=== PATIENT | female | born 2000 | race American Indian/Alaskan Native ===

== ENCOUNTER 2022-01-03 12:01 | Emergency (ER) | payer MEDICAID ==
[2022-01-03] MEDS ORDERED: ONDANSETRON 4 MG/2 ML INJ IV ONE (13:06)
[2022-01-03] MEDS ORDERED: SODIUM CHLORIDE 0.9% 1000 ML 1,000 ML IV ONE (13:06)
[2022-01-03] MEDS ORDERED: MORPHINE 4 MG/1 ML INJ IV ONE (13:06)
[2022-01-03 14:37] LABS: Alanine Aminotransferase 10 units/L (7-56); Albumin 4.1 g/dL (3.9-5); Blood Urea Nitrogen 5 mg/dL (7-17); Calcium 9.1 mg/dL (8.4-10.2); Hemolysis Index 24
[2022-01-03 14:41] LABS: BUN/Creatinine Ratio 8
--- NOTE | 2022-01-03 15:06 | Ultrasound Report ---
ULTRASOUND OBSTETRIC Indication: preg, abdominal pain Findings: There is a single, living intrauterine . Gestational sac and yolk sac appear unremarkable. [place]-rump length = 0.45 cm = 6 weeks, 1 day(s). heart rate is 124 beats per minute. The ovaries are unremarkable. There is a 1.3 cm left ovarian cyst. There is trace free fluid. Impression: Single, living intrauterine with estimated sonographic age of 6 weeks, 1 day(s). Of note, the gestational sac/endometrial cavity appears somewhat displaced posteriorly. This could be due the presence of a uterine fibroid. Signer Name: Sha Tello MD Signed: 01/03/2022 3:01 PM Workstation Name: [id number]
[2022-01-03 15:13] LABS: Hematocrit 35.9 % (30.3-42.9); Mean Corpuscular HGB Conc 33 % (30-34); Mean Corpuscular Volume 90 fl (79-97); Platelet Count 322 K/mm3 (140-440); Red Blood Count 3.98 M/mm3 (3.65-5.03); Red Cell Distribution Width 16.9 % (13.2-15.2)
[2022-01-03 15:14] LABS: RBC,Urine < 1.0 /HPF (0.0-6.0); WBC,Urine < 1.0 /HPF (0.0-6.0)
[2022-01-03 16:04] LABS: Bilirubin,Urine Negative (Negative); Blood,Urine Negative (Negative); Color,Urine Yellow (Yellow)
[2022-01-03] MEDS ORDERED: ACETAMINOPHEN W/CODEINE 300-30 MG TAB PO ONE (16:18)
--- NOTE | 2022-01-03 16:21 | Emergency Department Report ---
ED HPI - General Chief complaint: Back Pain/Injury Stated complaint: LABOR PAIN Time Seen by Provider: 01/03/22 12:35 Source: EMS Mode of arrival: Ambulatory Limitations: No Limitations - History of Present Illness Initial comments: 21-year-old black female with no past medical history presents to the emergency department for evaluation of back pain. She states that she is a who is about 6-week gestation and started to have severe back pain this morning. 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 She denies vaginal bleeding, vaginal discharge, dysuria, nausea, vomiting, abdominal pain. MD Complaint: other (Lower back pain) -: Gradual, days(s) (1) Location: other (Bilateral lower back) Radiation: none Severity: severe Severity scale (0 -10): 10 Quality: cramping, aching Consistency: constant Associated symptoms: denies: nausea/vomiting, vaginal bleeding, vaginal discharge, abdominal pain, dysuria, headache, vision changes, malaise, dysparuenia, rash, seizure, shortness of breath, syncope, weakness Vaginal bleeding: none :: Yes Number of weeks : 6 OB History - Current : no complications - Related Data : 1 Para: 0 Allergies Allergy/AdvReac Type Severity Reaction Status Date / Time No Known Allergies Allergy Verified 01/03/22 12:09 ED Review of Systems ROS: Stated complaint: LABOR PAIN Other details as noted in HPI Comment: All other systems reviewed and negative Constitutional: denies: chills, fever, malaise, weakness Respiratory: denies: shortness of breath Cardiovascular: denies: chest pain, palpitations Gastrointestinal: denies: abdominal pain, nausea, vomiting, diarrhea, hematemesis, melena, hematochezia Genitourinary: denies: urgency, dysuria, frequency, hematuria, discharge Musculoskeletal: back pain Neurological: denies: headache, weakness ED Physical Exam - General Limitations: No Limitations General appearance: alert, in no apparent distress - Head Head exam: Present: atraumatic, normocephalic - Eye Eye exam: Present: normal appearance. Absent: conjunctival injection - Neck Neck exam: Present: normal inspection, full ROM. Absent: tenderness, lymphadenopathy - Respiratory Respiratory exam: Present: normal lung sounds bilaterally. Absent: respiratory distress, wheezes, rales, rhonchi, stridor, chest wall tenderness - Cardiovascular Cardiovascular Exam: Present: tachycardia, normal heart sounds - GI/Abdominal GI/Abdominal exam: Present: soft, normal bowel sounds. Absent: distended, tenderness, guarding, rebound, rigid - Extremities Exam Extremities exam: Present: normal inspection, full ROM, normal capillary refill. Absent: pedal edema, joint swelling, calf tenderness - Back Exam Back exam: Present: normal inspection, tenderness (Bilateral lower). Absent: CVA tenderness (R), CVA tenderness (L), paraspinal tenderness, vertebral tende rness - Neurological Exam Neurological exam: Present: alert, oriented X3, normal gait - Psychiatric Psychiatric exam: Present: normal affect, normal mood - Skin Skin exam: Present: warm, dry, intact, normal color ED Course Vital Signs 01/03/22 01/03/22 01/03/22 12:07 12:30 17:10 Temperature 97.8 F 98.7 F 99.5 F Pulse Rate 102 H 86 55 L Respiratory 18 14 16 Rate Blood Pressure 122/71 106/78 102/83 [Left] O2 Sat by Pulse 100 100 100 Oximetry ED Medical Decision Making - Lab Data Result diagrams: 01/03/22 13:30 01/03/22 13:30 - Radiology Data Radiology results: report reviewed, image reviewed ultrasound: Impression: Single, living intrauterine with estimated sonographic age of 6 weeks, 1 day(s). Of note, the gestational sac/endometrial cavity appears somewhat displaced posteriorly. This could be due the presence of a uterine fibroid. - Medical Decision Making 21-year-old black female with no past medical history presents to the emergency department for evaluation of back pain. She states that she is a who is about 6-week gestation and started to have severe back pain this morning. 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 She denies vaginal bleeding, vaginal discharge, dysuria, nausea, vomiting, abdominal pain. Physical exam unremarkable. Labs and urine without any gross abnormalities noted. Ultrasound positive for IUP at 6 weeks. Back pain improved after medications. Patient will be discharged home and advised to use Tylenol as needed for pain and follow-up with her [facility] for further evaluation and management of care. She is advised to return to the emergency department as needed. She verbalizes understanding of and agreement with plan of care. Critical care attestation.: If time is entered above; I have spent that time in minutes in the direct care of this critically ill patient, excluding procedure time. ED Disposition Clinical Impression: Back pain during Disposition: 01 HOME / SELF CARE / HOMELESS Is pt being admited?: No Does the pt Need Aspirin: No Condition: Stable Instructions: Back Pain in Additional Instructions: Take Tylenol as needed for pain. Drink plenty of noncaffeinated fluids. Follow-up with [facility] for further evaluation and management. Return to the emergency department as needed. Referrals: [facility] [Provider Group] - 3-5 Days [facility] [Provider Group] - 3-5 Days [facility] [Provider [facility]] - 3-5 Days Forms: Work/School Release Form(ED) Time of Disposition: 16:20
[2022-01-03 17:29] VITALS: BP 102/83
== END 2022-01-03 17:36 | disposition home or self-care (01) ==
LOC: ED 12:01
DX: O26.892 Other specified pregnancy related conditions, second trimester (principal); M54.50 Low back pain, unspecified; Z3A.00 Weeks of gestation of pregnancy not specified
CPT/HCPCS: 36415; 76817; 80053; 81001; 84702; 85027; 86900; 86901; 96361; 96374; 96375; 99284; J2270; J2405; J7030; 76801